=== PATIENT | female | born 1960 | race Caucasian/White ===

== ENCOUNTER 2018-08-09 11:33 | Emergency (ER) | payer OTHER ==
[~2018-08-09] VITALS: Ht 167.6 cm; Wt 97.5 kg
[~2018-08-09 11:33] MED LIST: SYNTHROID50 MCG
[2018-08-09] MEDS ORDERED: CELECOXIB200 MG PO (16:17)
== END 2018-08-09 17:52 ==
LOC: ER 11:33
DX: M25.572 Pain in left ankle and joints of left foot (principal)

== ENCOUNTER 2018-10-08 10:52 | Outpatient (CLI) | payer OTHER ==
[~2018-10-08 10:52] MED LIST changes: +CELECOXIB200 MG PO
== END 2018-10-08 11:15 | disposition home or self-care (01) ==
LOC: SONOGRAMA 10:52 → MAMO-SONO 11:15
DX: M12.862 Other specific arthropathies, not elsewhere classified, left knee (principal)

== ENCOUNTER 2018-11-22 11:29 | Outpatient (CLI) | payer OTHER | END 2018-11-22 11:36 | disposition home or self-care (01) | LOC: RAD 501 11:29 | DX: M25.571 Pain in right ankle and joints of right foot (principal) ==

== ENCOUNTER 2019-07-13 09:03 | Outpatient (CLI) | payer OTHER | END 2019-07-13 09:07 | disposition home or self-care (01) | LOC: RAD 09:03 | DX: M54.5 Low back pain (principal) ==

== ENCOUNTER → 2019-08-21 17:10 | Outpatient (CLI) | payer OTHER | END | disposition home or self-care (01) | LOC: LAB 17:10 | DX: E21.2 Other hyperparathyroidism (principal); E88.89 Other specified metabolic disorders; M81.8 Other osteoporosis without current pathological fracture; E56.1 Deficiency of vitamin K ==

== ENCOUNTER 2020-07-20 20:08 | Emergency (ER) | payer OTHER ==
[~2020-07-20] VITALS: Ht 165.1 cm; Wt 111.1 kg
[2020-07-20] MEDS ORDERED: SYNTHROID75 MCG (20:23)
[2020-07-20] MEDS ORDERED: ACETAMINOPHEN650 M2 PO (23:22)
[2020-07-21] MEDS ORDERED: VISTARIL50 MG PO (00:56)
== END 2020-07-21 00:35 | disposition home or self-care (01) ==
LOC: ER 20:08
DX: R53.81 Other malaise (principal); J06.9 Acute upper respiratory infection, unspecified; R51.9 Headache, unspecified; Z03.818 Encounter for observation for suspected exposure to other biological agents ruled out

== ENCOUNTER 2021-04-14 12:50 | Emergency (ER) | payer OTHER ==
[~2021-04-14] VITALS: Ht 167.6 cm; Wt 102.1 kg
[~2021-04-14 12:50] MED LIST changes: +ACETAMINOPHEN650 M2 PO; +SYNTHROID75 MCG; +VISTARIL50 MG PO
[2021-04-14] MEDS ORDERED: KETO10TA2 PO (15:28)
== END 2021-04-14 17:58 | disposition home or self-care (01) ==
LOC: ER 12:50
DX: S62.644A Nondisplaced fracture of proximal phalanx of right ring finger, initial encounter for closed fracture (principal); S62.514A Nondisplaced fracture of proximal phalanx of right thumb, initial encounter for closed fracture; W18.39XA Other fall on same level, initial encounter; Y93.89 Activity, other specified; Y92.481 Parking lot as the place of occurrence of the external cause

== ENCOUNTER 2021-04-19 07:46 | Outpatient (CLI) | payer OTHER ==
[~2021-04-19 07:46] MED LIST changes: +KETO10TA2 PO
== END 2021-04-19 07:59 | disposition home or self-care (01) ==
LOC: RAD 07:46
PROVIDERS: ATTEND Orthopaedic Surgery
DX: M79.642 Pain in left hand (principal); S62.617A Displaced fracture of proximal phalanx of left little finger, initial encounter for closed fracture

== ENCOUNTER 2021-12-30 11:40 | Outpatient (CLI) | payer OTHER | END 2021-12-30 11:51 | disposition home or self-care (01) | LOC: RAD 11:40 | PROVIDERS: ATTEND Orthopaedic Surgery | DX: M79.671 Pain in right foot (principal) ==

== ENCOUNTER 2021-12-30 13:56 | Outpatient (CLI) | payer OTHER | END 2021-12-30 13:59 | disposition home or self-care (01) | LOC: NUCLEAR 13:56 | PROVIDERS: ATTEND Orthopaedic Surgery | DX: M81.0 Age-related osteoporosis without current pathological fracture (principal) ==

== ENCOUNTER 2023-01-05 14:49 | Outpatient (CLI) | payer OTHER | END 2023-01-05 14:56 | disposition home or self-care (01) | LOC: RAD 14:49 | PROVIDERS: ATTEND Orthopaedic Surgery | DX: M54.59 Other low back pain (principal) ==

== ENCOUNTER 2023-07-25 10:23 | Outpatient (CLI) | payer OTHER | END 2023-07-25 10:35 | disposition home or self-care (01) | LOC: SONOGRAMA 10:23 | PROVIDERS: ATTEND Internal Medicine Cardiovascular Disease | DX: I10 Essential (primary) hypertension (principal) ==

== ENCOUNTER → 2023-09-13 14:49 | Outpatient (CLI) | payer OTHER | END | disposition home or self-care (01) | LOC: MAMO-SONO 14:49 | PROVIDERS: ATTEND Obstetrics & Gynecology Gynecology | DX: R10.2 Pelvic and perineal pain (principal); N64.9 Disorder of breast, unspecified; N64.4 Mastodynia; Z12.31 Encounter for screening mammogram for malignant neoplasm of breast ==